=== PATIENT | female | born 1950 | race Caucasian/White ===

== ENCOUNTER 2022-02-20 17:00 | Inpatient (IN) | payer MEDICARE, OTHER ==
[~2022-02-20] VITALS: Ht 152.4 cm; Wt 36.5 kg
[2022-02-20 17:45] VITALS: BP 146/70
[2022-02-20] MEDS ORDERED: VENTOLIN HFA8 G1 IH (18:48)
[2022-02-20] MEDS ORDERED: IPRA3AMP29 NEB (18:48)
[2022-02-20] MEDS ORDERED: LOPE-101 PO (18:48)
[2022-02-20] MEDS ORDERED: AMIO200T53 PO (18:48)
[2022-02-20] MEDS ORDERED: LISI5TAB15 PO (18:48)
[2022-02-20] MEDS ORDERED: APIX2.5T PO (18:48)
[2022-02-20] MEDS ORDERED: FURO20TA3 PO (18:48)
[2022-02-20] MEDS ORDERED: ACET325T9 PO (18:48)
[2022-02-20] MEDS ORDERED: LEVO50TA PO (18:48)
[2022-02-20] MEDS ORDERED: GUAI600T47 PO (18:49)
[2022-02-20] MEDS ORDERED: PROC10TA57 PO (18:49)
[2022-02-20] MEDS ORDERED: METO50TA4 PO (18:49)
[2022-02-20] MEDS ORDERED: HYDR25TA PO (18:49)
[2022-02-20] MEDS ORDERED: MULT-245 PO (18:49)
[2022-02-20] MEDS ORDERED: METH40VI IJ (18:49)
[2022-02-20 19:00] VITALS: BP 146/68
[2022-02-20] MEDS ORDERED: hydrOXYzine 25 MG TABLET PO PRN (19:00)
[2022-02-20] MEDS ORDERED: ALBUTEROL SULFATE IH SCH (19:00)
[2022-02-20] MEDS ORDERED: FUROSEMIDE 20 MG TABLET PO PRN (19:00)
[2022-02-20] MEDS ORDERED: ALBUTEROL SULFATE 2.5 MG/3 ML NEBU. NEB PRN (19:15)
[2022-02-20] MEDS: IPRATRPIUM/ALBUTEROL 0.5/2.5MG 3 ML NEBU. NEB SCH (20:00)
[2022-02-20] MEDS: APIXABAN 2.5 MG TABLET. PO SCH (20:31)
[2022-02-20] MEDS: methylPREDNISolone SOD SUCC PF 40 MG/ML VIAL. IV SCH (20:32)
[2022-02-20] MEDS: PROCHLORPERAZINE 5 MG TABLET. PO SCH (22:35)
[2022-02-20] MEDS: ACETAMINOPHEN 325 MG TABLET. PO PRN (22:39)
[2022-02-20 22:52] VITALS: BP 141/68
[2022-02-21] VITALS (17 sets, daily range): BP systolic 124–173; BP diastolic 71–89
[2022-02-21] MEDS: PROCHLORPERAZINE 5 MG TABLET. PO SCH ×3 (05:19→18:30)
[2022-02-21] MEDS: LEVOTHYROXINE 50 MCG TABLET PO SCH (05:19)
[2022-02-21] MEDS: methylPREDNISolone SOD SUCC PF 40 MG/ML VIAL. IV SCH ×3 (05:26→21:09)
[2022-02-21 05:56] LABS: BASO % 0 % (0-3); CALCIUM 8.8 mg/dL (8.5-10.1); CREATININE 1.1 mg/dL (0.6-1.0); EOS % 0 % (0-3); GFR 48.8; HEMOGLOBIN 10.3 g/dL (12.0-15.5); LYMPH # 0.3 x10^3/uL (1.0-4.8); LYMPH % 2 % (24-48); MEAN CORPUSCULAR HEMOGLOBIN 30 pg (25-35); MEAN CORPUSCULAR HGB CONC 32 g/dL (31-37); MEAN CORPUSCULAR VOLUME 93 fL (79-100); MONO # 0.6 x10^3/uL (0.0-1.1); MONO % 3 % (0-9); NEUT # 16.4 x10^3/uL (1.8-7.7); NEUT % 95 % (31-73); PLATELET COUNT 439 x10^3/uL (140-400); POTASSIUM 4.5 mmol/L (3.5-5.1); RED BLOOD COUNT 3.46 x10^6/uL (3.50-5.40); RED CELL DISTRIBUTION WIDTH 15.5 % (11.5-14.5); WHITE BLOOD COUNT 17.3 x10^3/uL (4.0-11.0)
[2022-02-21] MEDS: IPRATRPIUM/ALBUTEROL 0.5/2.5MG 3 ML NEBU. NEB SCH ×4 (07:08→20:15)
[2022-02-21 07:54] LABS: % BANDS 2 % (0-9); % LYMPHS 4 % (24-48); % MONOS 3 % (0-10); % SEGS 91 % (35-66); PLT ESTIMATE INCREASED (ADEQUATE)
[2022-02-21] MEDS ORDERED: methylPREDNISolone SOD SUCC PF 125 MG/2 ML VIAL. IV ONE (08:15)
[2022-02-21] MEDS ORDERED: diphenhydrAMINE HCL 25 MG CAPSULE PO ONE (08:15)
[2022-02-21] MEDS: MULTIVITAMIN with MINERAL TABLET. PO SCH (08:23)
[2022-02-21] MEDS: LISINOPRIL 5 MG TABLET. PO SCH (08:24)
[2022-02-21] MEDS: METOPROLOL SUCC 24HR ER 50 MG TAB.ER.24H. PO SCH (08:24)
[2022-02-21] MEDS: AMIODARONE HCL 200 MG TABLET. PO SCH (08:24)
[2022-02-21] MEDS: APIXABAN 2.5 MG TABLET. PO SCH ×2 (09:00→21:09)
--- NOTE | 2022-02-21 10:31 | HP ---
DATE OF SERVICE: 02/21/2022 ADMIT DATE: 02/20/2022 HISTORY OF PRESENT ILLNESS: The patient is a 71-year-old female patient who presented to the Emergency Room of [facility] with a complaint of shortness of breath and diaphoresis. She apparently was awakened from sleep and was diaphoretic and short of breath, this made her very concerned, so she called 911. The patient has a history of lung cancer and she is already on 30 mg of prednisone daily. She has had blood clots in the past. She is already on anticoagulation for that. She does have cough. She was extensively investigated in the Emergency Room, had an EKG, imaging as well as lab work. Her EKG showed that she has an old anteroseptal infarction, no evidence of ST segment elevation or depression. Chest x-ray was mostly showing hyperexpanded lungs, but no pneumothorax, no pleural effusion is appreciated. No acute bony abnormalities. She does have bilateral breast implants with capsular calcification. Her lab work showed slightly elevated troponin at 75 and was admitted to do two more sets of cardiac enzyme, check her fasting lipid profile and consult the county adviser. She was seen by the county adviser and a decision was made to check an echocardiogram, which showed that the patient has left ventricular systolic function is mildly to moderately impaired, ejection fraction was 40-45%, the septum is akinetic, left ventricle has mild global hypokinesis. Discussion was held with the patient regarding further evaluation and she has an appointment for stress test on 03/01 at [facility]. She was given the option to be transferred to [facility] for cardiac catheterization and she opted for that and therefore, the patient was transferred to [facility] for cardiac catheterization and revascularization if deemed necessary. When I saw her this morning, she stated she was anxious, has slept very well, but denied any chest pain, denied any shortness of breath or diaphoresis. PAST MEDICAL HISTORY: Significant for congestive heart failure, hypertension, atrial fibrillation, pulmonary emboli. 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 PAST SURGICAL HISTORY: Significant for partial colectomy, colostomy and takedown, total abdominal hysterectomy, bilateral salpingo-oophorectomy, appendectomy, deviated nasal septum surgery, and bilateral breast implants as well as Port-A-Cath placement. ALLERGIES: SHE IS ALLERGIC TO BENZODIAZEPINE, IODINATED CONTRAST MEDIA, PENICILLIN, SULFA DRUGS, TETRACYCLINE, ACETYLCYSTEINE, CODEINE, MEPERIDINE, AND MORPHINE. FAMILY HISTORY: She has one brother who is older and apparently does not know much about him. Her father at age of 81. Mother at age of 26 in a motor vehicle accident. SOCIAL HISTORY: She is , has 2 sons and a daughter. She quit smoking in 2017. She does not drink alcohol; however, she continues to smoke marijuana. She used to be a meat counter clerk. REVIEW OF SYSTEMS: As per history of present illness. PHYSICAL EXAMINATION: GENERAL: When I examined her this morning, she looked pale, cachectic, but not jaundiced or cyanosed, no lymphadenopathy, no thyromegaly, no jugular venous distention. No limb edema. VITAL SIGNS: Her heart rate was 67, blood pressure is 124/89, temperature was 98.7, respiratory rate was 20 and oxygen saturation was 91% on 4 liters of oxygen. HEAD, EYES, EARS, NOSE, AND THROAT: Normocephalic, atraumatic. NECK: Supple. HEART: Showed normal first and second heart sounds. No gallop, rub or murmur. CHEST: Chest shows central trachea, equally reduced chest expansion, reduced air entry, vesicular breath sounds with bilateral scattered rhonchi. I could not appreciate any crepitation. ABDOMEN: Scaphoid, soft, nontender. NEUROLOGIC: She was grossly intact. LABORATORY DATA: This morning showed a white cell count of 17.3, hemoglobin 10, hematocrit 32, MCV 93, and platelet count of 439,000 with a manual differential showed 95% polymorphs, 2% lymphocytes and 3% monocytes. Her serum sodium was 143, potassium 4.5, chloride 105, bicarbonate 32, anion gap of 6, BUN 28, creatinine 1.1. Estimated GFR was 49 mL. Her glucose 110, and calcium was 8.8. ASSESSMENT AND PLAN: So in summary, this is a 71-year-old female patient who presented to the Emergency Room of [facility] with complaint of shortness of breath and diaphoresis. She had 4 sets of cardiac enzymes that are all slightly elevated; however, EKG showed an old anteroseptal myocardial infarction, but no evidence of ST segment elevation or depression. Her echocardiogram, however, showed that her left ventricular ejection fraction is impaired with an ejection fraction of 40-45% and global hypokinesis, likely due to ischemic cardiomyopathy. The patient was transferred to [facility] for cardiac catheterization and revascularization if deemed necessary. DEBBIE DR: Garth TID: [id number]
[2022-02-21] MEDS ORDERED: LIDOCAINE 1% PF 2 ML VIAL. ONE (11:29)
[2022-02-21] MEDS ORDERED: IODIXANOL 320 MG/ML 100 ML VIAL. ONE (11:29)
[2022-02-21] MEDS ORDERED: VERAPAMIL 5 MG/2 ML VIAL. ONE (11:52)
[2022-02-21] MEDS ORDERED: MIDAZOLAM HCL/PF 2 MG/2 ML VIAL. ONE (11:52)
[2022-02-21] MEDS ORDERED: NITROGLYCERIN 200 MCG/2 ML SYRINGE FOR CATH/VASC LAB. ONE (11:52)
[2022-02-21] MEDS ORDERED: fentaNYL PF VIAL 100 MCG/2 ML VIAL ONE (11:52)
[2022-02-21] MEDS ORDERED: HEPARIN for IV BOLUS 10,000 UNIT/10 ML VIAL. ONE (11:52)
[2022-02-21] MEDS ORDERED: fentaNYL PF VIAL 100 MCG/2 ML VIAL IV ONE (12:45)
[2022-02-21] MEDS ORDERED: LIDOCAINE 1% PF 2 ML VIAL. INJ ONE (12:45)
[2022-02-21] MEDS ORDERED: VERAPAMIL 5 MG/2 ML VIAL. IART ONE (12:45)
[2022-02-21] MEDS ORDERED: NITROGLYCERIN 200 MCG/2 ML SYRINGE FOR CATH/VASC LAB. IART ONE (12:45)
[2022-02-21] MEDS ORDERED: HEPARIN for IV BOLUS 10,000 UNIT/10 ML VIAL. IART ONE (12:45)
[2022-02-21] MEDS ORDERED: IODIXANOL 320 MG/ML 100 ML VIAL. IART ONE (12:45)
[2022-02-21] MEDS ORDERED: MIDAZOLAM HCL/PF 2 MG/2 ML VIAL. IV ONE (12:45)
[2022-02-21] MEDS ORDERED: CONTRAST GIVEN. MC PRN (13:00)
--- NOTE | 2022-02-21 14:25 | CARD ---
MR#: [id number] Date of Study: 02/21/2022 Ordering Physician: BERTIN GILMAN, Referring Physician: BERTIN GILMAN, Tech: CASEY REYEZ BUSINESS PROCESS COORDINATOR APPROVED REPORT Technologist: CASEY ARMSTRONG RTR BUSINESS PROCESS COORDINATOR Nurse: Sima Valerio RN Procedure(s) performed: MODERATE SEDATION TIME: 24 MINUTES FLUORO TIME: 2.3 MIN DOSE: 7.1 GYCM2 CONTRAST: 20CC VISI LHC, Coronary angiography HISTORY : The patient is a 71 year-old female with a history of . INDICATION The indication(s) include : dyspnea, Abnormal Echo. [facility] Clinical Frailty Scale [facility] Clinical Frailty Scale: Severely Frail Heart Failure Heart Failure: Yes If Yes, Newly Diagnosed: No If Yes, HF Type: Diastolic Systolic If Yes, NYHA Class: Class III CASE TECHNIQUE IV conscious sedation was used throughout procedure with appropriate monitoring and was performed in the presence of a registered nurse who was an independent trained observer other than the physician p erforming the procedure. During this case, Fluoroscopy and low osmolar contrast were used for imaging . Specimen(s) Removed: N/A Estimated Blood loss: 15 cc's. PROCEDURE NARRATIVE Clinical information: 71-year-old woman who comes into the [facility] for evaluation of dyspnea and an abnormal echocardiogra m Procedure details: After appropriate informed consent the right wrist was prepped and draped in usual sterile fashion. Under 1% lidocaine local anesthesia a 6 Lebanese sheath was placed in the right radial artery. Diagnos tic angiography was then performed with a 5 Lebanese TIG catheter. Left ventricular end-diastolic pres sure was obtained with a TIG catheter and a pullback was performed. At case completion catheters and sheaths were removed and hemostasis was achieved via a triple radial band. No acute complications. Findings: Aorta 140/80 LVEDP 10 mmHg No LV to aortic pullback gradient Coronary angiography: Left main is a large-caliber vessel with normal angiographic appearance LAD is a moderate to large caliber vessel with mild luminal irregularities D1 is a large-caliber vessel with mild luminal irregularities Left circumflex is a small caliber vessel with mild luminal irregularities RCA is a large-caliber vessel with normal angiographic appearance Conclusion 1. Normal left-sided filling pressures 2. No significant coronary artery disease Recommendations Aggressive Medical Therapy Signed by : Bertin Gilman, Electronically Approved : 02/21/2022 14:24:44
--- NOTE | 2022-02-21 17:02 | NUR ---
SS following for discharge planning. SS reviewed pt chart and discussed with pt RN. Pt is from home with spouse and is currently requiring oxygen at five liters nasal canula. Pt on IV Solu-Medrol. Pt has home oxygen. Heart cath today. Cardiology following. SS will continue to follow for discharge planning.
[2022-02-21] MEDS: LOPERAMIDE 2 MG CAPSULE PO PRN ×2 (18:31→21:42)
[2022-02-21] MEDS: ACETAMINOPHEN 325 MG TABLET. PO PRN (18:35)
--- NOTE | 2022-02-21 19:25 | NUR ---
Pt assisted to restroom and to bed assessment completed vss poc explained pt denied pain at this time but c/o of loose stools will medicate pt for loose stools and continue to monitor pt.Call light in reach.
[2022-02-22] MEDS: PROCHLORPERAZINE 5 MG TABLET. PO SCH ×2 (00:40→05:51)
[2022-02-22 03:00] VITALS: BP 147/76
[2022-02-22] MEDS: LEVOTHYROXINE 50 MCG TABLET PO SCH (05:50)
[2022-02-22] MEDS: methylPREDNISolone SOD SUCC PF 40 MG/ML VIAL. IV SCH (05:51)
[2022-02-22 07:30] VITALS: BP 180/83
[2022-02-22] MEDS: IPRATRPIUM/ALBUTEROL 0.5/2.5MG 3 ML NEBU. NEB SCH ×2 (07:37→12:00)
[2022-02-22] MEDS: LOPERAMIDE 2 MG CAPSULE PO PRN (08:53)
[2022-02-22] MEDS: METOPROLOL SUCC 24HR ER 50 MG TAB.ER.24H. PO SCH (08:53)
[2022-02-22] MEDS: AMIODARONE HCL 200 MG TABLET. PO SCH (08:54)
[2022-02-22] MEDS: APIXABAN 2.5 MG TABLET. PO SCH (08:54)
[2022-02-22] MEDS: MULTIVITAMIN with MINERAL TABLET. PO SCH (08:55)
[2022-02-22] MEDS: LISINOPRIL 5 MG TABLET. PO SCH (08:55)
--- NOTE | 2022-02-22 10:45 | NUR ---
SS following up with discharge planning. SS reviewed pt chart and discussed with pt RN. Pt is currently requiring oxygen at four liters nasal canula. Pt has home oxygen. Pt had heart cath on 02/21/2022. Dr. Durbin reported that he will discharge pt today with home healthcare. SS met with pt and discussed discharge planning and home healthcare. Pt agreeable to home healthcare with no preference of company. Discharge orders and referral sent to [facility], ; fax [phone]. Pt's RN notified.
--- NOTE | 2022-02-22 10:55 | SNU/HH DC ---
DISCHARGE WITH HOME HEALTH DISCHARGE INFORMATION: Discharge Date: February 22, 2022 Final Diagnosis: elevated troponin normal coronary arteries COPD LUNG CANCER Condition on Discharge: Stable CODE STATUS: Code Status: Full HOME HEALTH: Face to Face: I certify this patient is under my care and that I, or a nurse practitioner or physician's promotions assistant sales marketing working with me, had a face to face encounter that meets the physician face to face encounter requirements with this patient on 02/23/20 Medical Complications: Other RN For Eval/Treatment: Yes Physical Therapy For: Evalulation/Treatment Occupational Therapy For: Evaluation/Treatment Pt Meets Homebound Status: Extreme weakness w/ amb. POST DISCHARGE ORDERS: Activity Instructions for Disc: Activity as tolerated DIET AFTER DISCHARGE: Cardiac CERTIFICATION STATEMENT: Certification Statement: Certification Statement: Based on the above finding, I certify that this patient is confined to the home and needs intermittent nursing home care, physical therapy and/or speech therapy, or continues to need occupational therapy.~ This patient is under my care, and I have initiated the establishment of the plan of care.~ This patient will be followed by myself or a community physician who will periodically review the plan of care. Home Meds Reported Medications Methylprednisolone Sod Succ/Pf (SOLU-MEDROL 40 MG VIAL) 40 Mg/1 Ml Vial, 40 MG IJ Q8HRS for LUNG INFLAM, EACH 02/20/22 Hydroxyzine Hcl (HYDROXYZINE HCL) 25 Mg Tablet, 1 TAB PO QIDPRN for ANXIETY, #30 TAB 02/20/22 Guaifenesin (MUCINEX) 600 Mg Tablet.er, 1 TAB PO BID for cough for 10 Days, #20 TAB 0 Refills 02/20/22 Prochlorperazine Maleate (Compazine) 10 Mg Tablet, 1 TAB PO Q6HRS for NAUSEA for 30 Days, #120 TAB 0 Refills 02/20/22 Multivitamin (MULTI VITAMIN DAILY) 1 Each Tablet, 1 TAB PO DAILY for SUPPL for 30 Days, #30 TAB 0 Refills 02/20/22 Metoprolol Succinate (Toprol XL) 50 Mg Tab.er.24h, 50 MG PO DAILY for FOR H YPERTENSION, TAB.SR 02/20/22 Loperamide HCl (Imodium A-D) 2 Mg Capsule, 2 MG PO TID PRN PRN for DIARRHEA, CAP 02/20/22 Lisinopril (LISINOPRIL) 5 Mg Tablet, 1 TAB PO DAILY for BLOOD PRESSURE, #30 TAB 5 Refills 02/20/22 Levothyroxine Sodium (SYNTHROID) 50 Mcg Tablet, 1 TAB PO DAILY05 for THYROID, #30 TAB 5 Refills 02/20/22 Ipratropium/Albuterol Sulfate (DUONEB 0.5-3(2.5) MG/3 ML) 3 Ml Ampul.neb, 3 ML NEB QID for SOA, EACH 02/20/22 Furosemide (FUROSEMIDE) 20 Mg Tablet, 1 TAB PO DAILY PRN for DAILY, #90 TAB 1 Refill 02/20/22 Apixaban (ELIQUIS) 2.5 Mg Tablet, 2.5 MG PO BID for BLOOD THINNER, TAB 02/20/22 Amiodarone Hcl (AMIODARONE HCL) 200 Mg Tablet, 1 TAB PO DAILY for HEART, #90 TAB 1 Refill 02/20/22 Albuterol Sulfate (Ventolin Hfa) 8 Gm Hfa.aer.ad, 1 GM IH [id number] for SOA, EACH 02/20/22 Acetaminophen (TYLENOL) 325 Mg Tablet, 650 MG PO BIDAFTMEAL PRN for pain, TAB 02/20/22 VLADISLAV HOGUE MD February 22, 2022 10:55
[2022-02-22 11:00] VITALS: BP 174/87
--- NOTE | 2022-02-22 12:35 | NUR ---
DISCHARGED PATIENT HOME WITH HOME HEALTH. DISCHARGE INSTRUCTIONS GIVEN. PIV AND HEART MONITOR REMOVED. ESCORTED PATIENT OFF UNIT INTO A PRIVATE VEHICLE.
== END 2022-02-22 12:34 | disposition home health service (06) | DRG 287 ==
LOC: 6 SOUTH 17:00
PROVIDERS: ADMIT Internal Medicine; ATTEND Internal Medicine
PROC: 4A023N7 Measurement of Cardiac Sampling and Pressure, Left Heart, Percutaneous Approach (ICD-10-PCS; principal; 2022-02-21)
PROC: B211YZZ Fluoroscopy of Multiple Coronary Arteries using Other Contrast (ICD-10-PCS; 2022-02-21)
DX: I25.5 Ischemic cardiomyopathy (principal); E27.1 Primary adrenocortical insufficiency; F12.90 Cannabis use, unspecified, uncomplicated; I11.0 Hypertensive heart disease with heart failure; I25.2 Old myocardial infarction; I48.91 Unspecified atrial fibrillation; I50.9 Heart failure, unspecified; J44.9 Chronic obstructive pulmonary disease, unspecified; Z85.118 Personal history of other malignant neoplasm of bronchus and lung; Z86.711 Personal history of pulmonary embolism; Z87.891 Personal history of nicotine dependence; Z90.710 Acquired absence of both cervix and uterus; Z92.3 Personal history of irradiation; Z98.82 Breast implant status; Z99.81 Dependence on supplemental oxygen; Z63.4 Disappearance and death of family member
CPT/HCPCS: 36415; 80048; 85007; 85025; 93458; 94640; 94760; 99152; 99153; C1769; C1894; J1644; J2250; J2920; J2930; J3010; J3490; Q9967; G0378; J7613; Q0163; Q0164